=== PATIENT | male | born 1970 | race Caucasian/White ===

== ENCOUNTER 2024-11-04 13:13 | Emergency (ER) | payer OTHER ==
[~2024-11-04] VITALS: Ht 175.2 cm; Wt 85.3 kg
[2024-11-04] MEDS ORDERED: SODIUM CHLORIDE 0.9% 1,000 ML IV ONE (13:30)
[2024-11-04] MEDS ORDERED: MORPHINE Sulfate 2 MG/ML SYR IV ONE (13:30)
[2024-11-04] MEDS ORDERED: Ondansetron Hydrochloride 4 MG/2 ML VIAL IV ONE (13:30)
[2024-11-04 13:46] LABS: BASO # 0.1 10*3/uL (0.0-0.1); BASO % 1.1 % (0.0-1.0); EOS # 0.2 10*3/uL (0.0-0.4); EOS % 3.4 % (1.0-4.0); MEAN CELL VOLUME 87.6 fl (80.0-94.0); MEAN CORPUSCULAR HGB 28.8 pg (27.0-31.0); MEAN CORPUSCULAR HGB CONC 32.8 g/dl (33.0-37.0); MONO # 0.5 10*3/uL (0.1-1.0); MONO % 8.6 % (3.0-9.0); NEUT # 3.7 10*3/uL (2.3-7.9); NEUT % 60.1 % (47.0-73.0); PLATELET COUNT AUTOMATED 261 10*3/uL (130-400); RED BLOOD COUNT 5.25 10*6/uL (4.50-5.90); WHITE BLOOD COUNT 6.2 10*3/uL (4.8-10.8)
[2024-11-04] MEDS ORDERED: JARDIANCE25 MG PO (13:48)
[2024-11-04] MEDS ORDERED: CLOPIDOGREL75 MG PO (13:48)
[2024-11-04] MEDS ORDERED: TAMSULOSIN HCL0.4 MG PO (13:49)
[2024-11-04] MEDS ORDERED: LISINOPRIL5 MG PO (13:49)
[2024-11-04] MEDS ORDERED: NOVOLOG FL100 UNIT/2 SC (13:50)
[2024-11-04] MEDS ORDERED: LANTUS SOL100 UNIT/1 SC (13:50)
[2024-11-04] MEDS ORDERED: ROSUVASTATIN CA20 MG PO (13:50)
[2024-11-04] MEDS ORDERED: ASPIRIN ADULT L81 M1 PO (13:51)
[2024-11-04 13:57] LABS: ACT PARTIAL THROMBO TIME 26.1 SECONDS (20.0-32.1)
[2024-11-04 14:09] LABS: ALKALINE PHOSPHATASE 56 U/L (46-116); BUN 13 mg/dl (9-23); CHLORIDE 103 mmol/L (98-107); POTASSIUM 4.4 mmol/L (3.4-5.1); SGPT/ALT 17 U/L (5-49); TOTAL PROTEIN 7.1 gm/dL (6.0-8.0)
[2024-11-04] MEDS ORDERED: AMOX-CLAV 875-1 EACH PO (15:11)
== END 2024-11-04 15:41 | disposition home or self-care (01) ==
LOC: ED 13:13
PROVIDERS: Emergency Medicine
DX: R07.89 Other chest pain (principal); K04.7 Periapical abscess without sinus; I25.10 Atherosclerotic heart disease of native coronary artery without angina pectoris; I10 Essential (primary) hypertension; E11.9 Type 2 diabetes mellitus without complications; E78.5 Hyperlipidemia, unspecified